=== PATIENT | female | born 1950 | race Caucasian/White ===

== ENCOUNTER → 2016-09-20 | Outpatient (CLI) | payer OTHER ==
--- NOTE | 2016-09-20 10:12 | MM ---
Reason for exam: screening (asymptomatic). Last mammogram was performed 1 year and 1 month ago. History: Family history of breast cancer in sister at age 30. Physical Findings: A clinical breast exam by your physician is recommended on an annual basis and results should be correlated with mammographic findings. MG 3D Screening Mammo W/Cad Bilateral CC and MLO view(s) were taken. Prior study comparison: August 18, 2015, mammogram, performed at [facility]. August 05, 2014, mammogram, performed at [facility]. There are scattered fibroglandular densities. No significant changes when compared with prior studies. ASSESSMENT: Benign, BI-RAD 2 RECOMMENDATION: Routine screening mammogram of both breasts in 1 year.
== END | disposition home or self-care (01) ==
LOC: RADMAMWWP 07:56
PROVIDERS: ATTEND Internal Medicine
DX: Z12.31 Encounter for screening mammogram for malignant neoplasm of breast (principal)
CPT/HCPCS: 77063; G0202

== ENCOUNTER → 2018-09-21 | Outpatient (CLI) | payer MEDICARE, OTHER ==
--- NOTE | 2018-09-24 09:33 | MM ---
Reason for exam: screening (asymptomatic). Last mammogram was performed 2 years ago. History: Family history of breast cancer in sister at age 30. Physical Findings: A clinical breast exam by your physician is recommended on an annual basis and results should be correlated with mammographic findings. MG 3D Screening Mammo W/Cad Bilateral CC and MLO view(s) were taken. Prior study comparison: September 20, 2016, bilateral MG 3d screening mammo w/cad. August 18, 2015, mammogram, performed at [facility]. The breast tissue is heterogeneously dense. This may lower the sensitivity of mammography. No suspicious abnormality. No significant changes when compared with prior studies. ASSESSMENT: Negative, BI-RAD 1 RECOMMENDATION: Routine screening mammogram of both breasts in 1 year.
== END | disposition home or self-care (01) ==
LOC: RADMAMWWP 07:01
PROVIDERS: ATTEND Family Medicine
DX: Z12.31 Encounter for screening mammogram for malignant neoplasm of breast (principal); Z80.3 Family history of malignant neoplasm of breast
CPT/HCPCS: 77063; 77067

== ENCOUNTER → 2023-10-25 | Outpatient (CLI) | payer MEDICARE ==
--- NOTE | 2023-10-26 13:41 | MR ---
EXAMINATION TYPE: MR liver wo/w con DATE OF EXAM: 10/25/2023 7:23 AM CLINICAL INDICATION:Female, 73 years old with history of K76.9 LIVER DISEASE, UNSPECIFIED; PHH, Rt si de abd pain, abnormal CT/US COMPARISON: CT scan abdomen from 10/05/2023 TECHNIQUE: Multiplanar multi-sequence imaging was performed without contrast. Post contrast imaging was performed. Post IV contrast subtraction images were also submitted for review. IV Contrast: 8 cc Gadavist FINDINGS: LOWER CHEST: No gross irregularity. ABDOMEN Liver: No evidence for hepatic steatosis or cirrhosis. Low-density area seen on prior CT is most comp atible with focal fatty infiltration which demonstrates signal dropout on chemical shift phase imagin g. Gallbladder and Bile ducts: No evidence for ductal dilation, or biliary stricture or evidence of chol edocholithiasis. The gallbladder is within normal limits. Pancreas: No ductal dilation. No evidence for solid mass. Spleen: Normal for size. Adrenal glands: Unremarkable. Kidneys: No evidence for obstructive uropathy. No suspicious renal masses. Subcentimeter left renal c yst. Stomach and Bowel: No evidence for bowel wall thickening or evidence for obstruction. Retroperitoneum/Peritoneum: No evidence of pneumoperitoneum or free fluid. Vasculature: No aortic aneurysm. Musculoskeletal: The osseous structures appear intact. Lymph Nodes: No gross evidence for lymphadenopathy. Abdominal wall: Fat-containing umbilical hernia IMPRESSION: Area of concern is focal fatty infiltration near the falciform ligament. No suspicious masses. No abn ormal postcontrast enhancement.
== END | disposition home or self-care (01) ==
LOC: RADMRIMAIN 06:32
PROVIDERS: ATTEND Family Medicine
DX: K76.9 Liver disease, unspecified (principal)
CPT/HCPCS: 74183; A9585

== ENCOUNTER 2023-10-31 10:04 | Emergency (ER) | payer MEDICARE ==
[2023-10-31 10:19] VITALS: RESP 17; TEMP 98
--- NOTE | 2023-10-31 10:30 | ED ---
Lower Extremity Injury HPI - General Chief Complaint: Extremity Injury, Lower Stated Complaint: Fall-R leg injury Time Seen by Provider: 10/31/23 10:21 Source: patient, EMS, RN notes reviewed Mode of arrival: EMS Limitations: no limitations - History of Present Illness Initial Comments: This is a 73-year-old female presents the emergency department with complaint of a fall. Patient states that she was in her garage and she slipped in the water landing in a somwhat split leg position, injuring her right hip and right knee. Patient denies hitting her head or loss of conscious at the time of fall. Currently patient is denying headache, chest pain, dyspnea, palpitations. She denies blood thinner use. Patient's pain is most severe of the right distal femur states that she is unable to complete range of motion of the right knee. Denies previous orthopedic joint replacement surgeries. - Related Data Allergies Allergy/AdvReac Type Severity Reaction Status Date / Time No Known Allergies Allergy Verified 10/31/23 10:19 Review of Systems ROS Statement: Those systems with pertinent positive or pertinent negative responses have been documented in the HPI. ROS Other: All systems not noted in ROS Statement are negative. Past Medical History Past Medical History: Thyroid Disorder History of Any Multi-Drug Resistant Organisms: None Reported Past Surgical History: Hysterectomy, Tubal Ligation Additional Past Surgical History / Comment(s): x 2. Thyroid Smoking Status: Never smoker Past Alcohol Use History: None Reported Past Drug Use History: None Reported General Exam Limitations: no limitations General appearance: alert, in no apparent distress Head exam: Present: atraumatic, normocephalic, normal inspection Eye exam: Present: normal appearance, PERRL, EOMI. Absent: scleral icterus, conjunctival injection, periorbital swelling ENT exam: Present: normal exam, mucous membranes moist Neck exam: Present: normal inspection. Absent: tenderness, meningismus, lymphadenopathy Respiratory exam: Present: normal lung sounds bilaterally. Absent: respiratory distress, wheezes, rales, rhonchi, stridor Cardiovascular Exam: Present: regular rate, normal rhythm, normal heart sounds. Absent: systolic murmur, diastolic murmur, rubs, gallop, clicks GI/Abdominal exam: Present: soft, normal bowel sounds. Absent: distended, tenderness, guarding, rebound, rigid Right Upper Leg exam: Present: tenderness, swelling, deformity (external rotation). Absent: full ROM (unable to complete ROM ), abrasion, laceration, ecchymosis, crepitus Knee exam: Present: tenderness, swelling Lower Leg exam: Present: normal inspection Ankle exam: Present: normal inspection. Absent: full ROM (pain with plantar and dorsiflexion), tenderness, swelling Neurovascular tendon exam: Present: no vascular compromise. Absent: pulse deficit, abnormal cap refill Gait: not tested/not observed Back exam: Present: normal inspection Neurological exam: Present: alert, oriented X3, CN II-XII intact Skin exam: Present: warm, dry, intact, normal color. Absent: rash Course Vital Signs 10/31/23 10/31/23 10:16 13:11 Temperature 98.0 F Pulse Rate 71 62 Respiratory 17 17 Rate Blood Pressure 138/75 108/59 O2 Sat by Pulse 97 96 Oximetry Medical Decision Making - Medical Decision Making Was pt. sent in by a medical professional or institution (, PA, PROTOHISTORIAN, urgent care, hospital, or [facility]...) When possible be specific @ -No Did you speak to anyone other than the patient for history (EMS, parent, family, police, friend...)? What history was obtained from this source @ -No Did you review nursing and triage notes (agree or disagree)? Why? @ -I reviewed and agree with nursing and triage notes Were old charts reviewed (outside hosp., previous admission, EMS record, old EKG, old radiological studies, urgent care reports/EKG's, [facility] records)? Report findings @ -No old charts were reviewed Differential Diagnosis (chest pain, altered mental status, abdominal pain women, abdominal pain men, vaginal bleeding, weakness, fever, dyspnea, syncope, headache, dizziness, GI bleed, back pain, seizure, CVA, palpatations, mental health, musculoskeletal)? @ -Differential Musculoskeletal Muscular strain, contusion, ligament sprain, fracture, arthritis, septic arthritis, bursitis, cellulitis, muscle spasm, nerve compression, DVT, arterial occlusion, herpes zoster, electrolyte abnormality, tumor.... This is not meant to be in all inclusive list EKG interpreted by me (3pts min.). @ -none X-rays interpreted by me (1pt min.). @ -X-ray of the right femur reveals a distal femoral fracture with spiraling into the midshaft. CT interpreted by me (1pt min.). @ -None done U/S interpreted by me (1pt. min.). @ -None done What testing was considered but not performed or refused? (CT, X-rays, U/S, labs)? Why? @ -None What meds were considered but not given or refused? Why? @ -None Did you discuss the management of the patient with other professionals (professionals i.e. DrAliza, PA, PROTOHISTORIAN, lab, RT, psych nurse, social service worker, nursing informatics specialist, teacher, correctional officer chief, supportive employment case manager)? Give summary @ -I spoke to Rody, midlevel orthopedic provider, who spoke to Dr. Beckett in regard to the patient's case, who recommends transfer to [facility] for further evaluation by orthopedic trauma team. Dr. Dillard, [facility], accepts transfer for right femoral fracture Was smoking cessation discussed for >3mins.? @ -No Was critical care preformed (if so, how long)? @ -No Were there social determinants of health that impacted care today? How? (Homelessness, low income, unemployed, alcoholism, drug addiction, transportation, low edu. Level, literacy, decrease access to med. care, prison, rehab)? @ -No Was there de-escalation of care discussed even if they declined (Discuss DNR or withdrawal of care, Hospice)? DNR status @ -No What co-morbidities impacted this encounter? (DM, HTN, Smoking, COPD, CAD, Cancer, CVA, ARF, Chemo, Hep., AIDS, mental health diagnosis, sleep apnea, morbid obesity)? @ -None Was patient admitted / discharged? Hospital course, mention meds given and route, prescriptions, significant lab abnormalities, going to OR and other pertinent info. @ -73 year old female with right leg injury. On examination patient arrived via EMS in a c-collar. On discussion with patient she states that she did not hit her head, lose consciousness, and denies neck pain or pain with neck movement. Complete neurovascular examination within normal limits and no deficits noted of the UE, therefore C-collar was taken off with minimal clinical concern for cervical neck injury. Patient has swelling of the distal right femur and pain with palpation, unable to assess ROM due to pain. Pedal pulses intact with intact capillary refill. Denies pain in the bilateral upper extremities, head, left lower extremity. Patient provided with a dose of morphine and sent for x- ray imaging. Concerning for a fracture of the distal right femur. Orthopedics team recommends transfer to [facility]. Patient accepted for transfer. Emergency department attending, Dr. Dillard, acceptedd transfer. Case discussed with my attending Dr. Brady Undiagnosed new problem with uncertain prognosis? @ -No Drug Therapy requiring intensive monitoring for toxicity (Heparin, Nitro, Insulin, Cardizem)? @ -No Were any procedures done? @ -No Diagnosis/symptom? @ -right femoral fracture Acute, or Chronic, or Acute on Chronic? @ -acute Uncomplicated (without systemic symptoms) or Complicated (systemic symptoms)? @ -complicated Side effects of treatment? @ -No Exacerbation, Progression, or Severe Exacerbation? @ -No Poses a threat to life or bodily function? How? (Chest pain, [place], [place], pneumonia, PE, COPD, DKA, ARF, appy, cholecystitis, CVA, Diverticulitis, Homicidal, Suicidal, threat to staff... and all critical care pts) @ -Yes, untreated severe fractures have the potential to lead to compartment syndrome which is limb threatening if left untreated. Disposition Clinical Impression: Femur fracture, right Disposition: OTHER INSTITUTION NOT DEFINED Condition: Serious Referrals: Kylee Stewart DO [Primary Care Provider] - 1-2 days - Out of Hospital Transfer - Req. Specs Out of Hospital Transfer - Requested Specifics: Other Emergency Center ([facility])
[2023-10-31] MEDS: MORPHINE SULFATE 4 MG/ML SYRINGE IVP STA ×2 (10:36→12:16)
--- NOTE | 2023-10-31 11:30 | XR ---
EXAMINATION TYPE: XR Hip Complete RT, XR femur RT, XR tibia fibula RT DATE OF EXAM: 10/31/2023 11:20 AM INDICATION: Patient age:Female; 73 years old; Reason for study: fall, pain; PHH. COMPARISON: None. TECHNIQUE: The right hip was examined in the frontal and lateral projections . The right femur was ex amined in AP and lateral projections. The right tibia/fibula was examined in AP and lateral projectio ns. FINDINGS: Acute comminuted fracture of the distal to mid right femur identified with oblique and moss sverse components. There is mild to moderate displacement of the fracture fragments. Shortening is id entified measuring up to 5.7 cm. There is lateral apex angulation of the distal fracture aspect. Surr ounding soft tissue edema identified. No fracture or dislocation of the right hip or knee. Mild osteo phytic changes of the right knee with osteophyte formation. No visualized fracture of the tibia or fi bula. No radiopaque foreign body identified. IMPRESSION: Acute comminuted displaced fracture of the mid to distal right femur.
[2023-10-31] MEDS: HYDROmorphone 1 MG/ML 1 ML SYRINGE IVP STA ×3 (11:34→14:07)
[2023-10-31] MEDS: ONDANSETRON 4 MG/2 ML VIAL IVP STA ×2 (12:30→12:31)
[2023-10-31 13:12] VITALS: BP 108/59; PULSE 62
== END 2023-10-31 14:15 | disposition other institution (70) ==
LOC: EC 10:04
DX: S72.491A Other fracture of lower end of right femur, initial encounter for closed fracture (principal); W01.0XXA Fall on same level from slipping, tripping and stumbling without subsequent striking against object, initial encounter; Y92.59 Other trade areas as the place of occurrence of the external cause
CPT/HCPCS: 73502; 73552; 73590; 99285; 96374; 96375 ×2; 96376 ×3; J2270; J2405; J1170

== ENCOUNTER 2024-04-15 07:41 | Day surgery (SDC) | payer MEDICARE ==
[~2024-04-15 07:41] MED LIST: LIDOCAINE 1% (10MG/ML) FOR IV START INTRADERMA PRN; fentaNYL (PF) 50 MCG/ML 2 ML AMP IVP PRN
[2024-04-15] MEDS: IV FLUID CONTINUATION 1,000 ML IV ONE (08:13)
[2024-04-15] MEDS: ACETAMINOPHEN TAB 500 MG TAB PO PRN (08:32)
[2024-04-15] MEDS: LACTATED RINGERS 1,000 ML IV SCH (08:32)
[2024-04-15] MEDS: ONDANSETRON 4 MG/2 ML VIAL IVP ONE (08:32)
[2024-04-15] MEDS: DEXAMETHASONE SOD PHOSPHATE 4 MG/ML 1 ML VIAL IV ONE (08:32)
[2024-04-15] MEDS: MIDAZOLAM 2 MG/2 ML VIAL IV PRN (08:50)
[2024-04-15] MEDS: HEPARIN SODIUM,PORCINE 5,000 UNIT/ML 1 ML VIAL SQ PRN (09:03)
--- NOTE | 2024-04-15 09:48 | P.HPADDEND ---
H&P Addendum H&P Addendum Date: 04/15/24 Patient presents for surgery today. Has both a ventral hernia and an umbilical hernia. Will plan repair of both through a vertical incision between the 2. Patient also complains of a mass in the left subcostal location. Says it has been there for a few years but is sore at times. On exam she has a 1.5 to 2 cm lipoma there. Patient would like this removed. Will add this to the consent.
[2024-04-15] MEDS ORDERED: fentaNYL (PF) 50 MCG/ML 2 ML AMP ONE (09:55)
[2024-04-15] MEDS ORDERED: GLYCOPYRROLATE 0.2 MG/ML 2 ML VIAL ONE (09:55)
[2024-04-15] MEDS ORDERED: MIDAZOLAM 2 MG/2 ML VIAL ONE (09:55)
[2024-04-15] MEDS ORDERED: ROPIVACAINE 5 MG/ML 30 ML VIAL ONE (09:55)
[2024-04-15] MEDS ORDERED: DEXAMETHASONE SOD PHOSPHATE 4 MG/ML 1 ML VIAL ONE (09:55)
[2024-04-15] MEDS ORDERED: PROPOFOL 10 MG/ML 20 ML VIAL IV ONE (09:55)
[2024-04-15] MEDS ORDERED: SUCCINYLCHOLINE CHLORIDE 200 MG/10 ML VIAL IV ONE (09:55)
[2024-04-15] MEDS ORDERED: NEOSTIGMINE 1 MG/ML 10 ML VIAL ONE (09:55)
[2024-04-15] MEDS ORDERED: LIDOCAINE 1% INJ 10MG/ML (20 ML MDV) ONE (09:55)
[2024-04-15] MEDS ORDERED: ROCURONIUM 10 MG/ML (5 ML VIAL) IV ONE (09:55)
[2024-04-15] MEDS ORDERED: PHENYLEPHRINE-0.9% NACL SYG 1,000 MCG/10 ML SYRINGE ONE (09:55)
[2024-04-15] MEDS: BUPIVACAINE (PF) 0.25% 30 ML VIAL SQ ONE (10:24)
[2024-04-15] MEDS: LACTATED RINGERS 1,000 ML IV ONE (11:00)
--- NOTE | 2024-04-15 11:22 | P.OP ---
Date of Procedure: 04/15/24 Procedure(s) Performed: PREOPERATIVE DIAGNOSIS: Incarcerated ventral hernia, reducible umbilical hernia, abdominal wall lipoma POSTOPERATIVE DIAGNOSIS: Same PROCEDURE: Open repair incarcerated ventral and reducible umbilical hernia with mesh, excision abdominal wall lipoma with intermediate closure SURGEON: Dr. Caceres ANESTHESIA: General EBL: 20 cc OPERATIVE PROCEDURE DETAILS: Patient placed on the operating table in the supine position. Abdomen was prepped and draped in usual sterile fashion. First the lipoma was addressed. This was present in the left quadrant. A horizontal incision was made overlying the palpable mass. This measured 2.2 cm in size. This was sent to pathology for close examination. Subcutaneous layers were closed using 3-0 Vicryl sutures. Skin was closed using a running 4-0 Monocryl stitch. Length of intermediate closure 2 cm. A vertical incision was then made superior to the umbilicus by approximately 3 cm. Dissection through the subcutaneous tissues took place using electrocautery. The patient had an incarcerated ventral hernia. This was coming through a small defect measuring only about 7 mm in size. This hernia sac was excised. Small area of bleeding was controlled using a 3-0 silk tie. Fascia was closed here using 3 separate [id number] 0 Ethibond sutures. The patient's reducible umbilical hernia was larger. The fascial defect here was 2.3 cm. The hernia sac was circumferentially dissected and reduced back into the preperitoneal space. P reperitoneal space was then carefully dissected using both blunt dissection and cautery. We had adequate space now for a sizable mesh. The 6.4 cm ventral ex mesh was placed in the preperitoneal space and sutured to the fascia using trans-fascial 0 Ethibond sutures. Following that the midline fascia was reapproximated using interrupted 0 Ethibond mattress sutures. The subcutaneous tissues were closed using 3-0 Vicryl sutures. The skin was closed using a running 4-0 Monocryl suture. Skin glue and sterile dressings were applied. TYPE OF MESH USED: 6.4 cm Ventralex LOCATION OF MESH: Sublay FIXATION: 0 Ethibond PREOPERATIVE DISCUSSION ON SMOKING CESSASTION: Yes PREOPERATIVE DISCUSSION ON MORBID OBESITY: Yes PREOPERATIVE DISCUSSION ON APPROPRIATE USE OF NARCOTIC USE: Yes PREOPERATIVE EDUCATION: Multi Modal, Smoking Cessation and Weight Loss with BMI over 35. DISPOSITION: Stable to recovery room
[2024-04-15 11:34] VITALS: TEMP 97
[2024-04-15] MEDS: HYDROmorphone 0.5 MG/0.5 ML SYRINGE IVP PRN (11:57)
[2024-04-15] MEDS ORDERED: ACETAMINOPHEN TAB 325 MG TAB PO SCH (12:00)
[2024-04-15] MEDS: KETOROLAC 15 MG/ML 1 ML VIAL IVP STA (12:29)
[2024-04-15 13:47] VITALS: BP 125/71; PULSE 68; RESP 18
--- NOTE | 2024-04-15 14:02 | P.ANPRN ---
Procedure Note - Anesthesia - Nerve Block Performed Bilateral Transversus Abdominis Single Time Out Performed: Yes Date of Procedure: 04/15/24 Procedure Start Time: 08:48 Procedure Stop Time: 08:56 Location of Patient: PreOp Indication: Acute Post-Operative Pain, Requested by Surgeon Sedation Type: Sedate with meaningful contact maintained Preparation: Sterile Prep Position: Supine Needle Types: Pajunk Needle Gauge: 21 Ultrasound used to visualize needle placement: Yes Ultrasound used to observe medication spread: Yes Blood Aspirated: No Pain Paresthesia on Injection Noted: No Resistance on Injection: Normal Image Stored and Saved: Yes Events: Uneventful and Well Tolerated (Ropivacaine 0.5% 20 cc plus dexamethasone 4 mg given bilaterally)
[2024-04-15] MEDS ORDERED: IBUPROFEN 600 MG TAB PO SCH (15:00)
== END 2024-04-15 14:13 | disposition home or self-care (01) ==
LOC: OR 07:41
PROVIDERS: ATTEND Surgery
DX: K43.6 Other and unspecified ventral hernia with obstruction, without gangrene (principal); K42.9 Umbilical hernia without obstruction or gangrene; D17.1 Benign lipomatous neoplasm of skin and subcutaneous tissue of trunk; E07.9 Disorder of thyroid, unspecified; M19.90 Unspecified osteoarthritis, unspecified site; Z79.890 Hormone replacement therapy; Z79.899 Other long term (current) drug therapy; Z89.9 Acquired absence of limb, unspecified
CPT/HCPCS: 64488; 49592; 22903; C1781; J2250; J0330; J1644; J1100; J2710; J0690; J2405; J2003; J3010; J2795; J1885; J2704; J1171; J2371; J0665; J1596; 88304

== ENCOUNTER → 2024-10-28 | Outpatient (CLI) | payer MEDICARE ==
--- NOTE | 2024-10-28 07:43 | MM ---
Reason for Exam: Screening (asymptomatic). Last mammogram was performed 6 year(s) and 1 month(s) ago. Patient History: Menarche at age 16. First Full-Term at age 27. Hysterectomy at age 29. Sister had breast cancer, age 30. Risk Values: Jaimie 5 year model risk: 3.1%. NCI Lifetime model risk: 8.1%. Prior Study Comparison: 08/18/2015 Screening Mammogram, [facility] . 09/20/2016 Bilateral Screening Mammogram, [facility]. 09/21/2018 Bilateral Screening Mammogram, [facility]. Tissue Density: The breasts are heterogeneously dense, which may obscure small masses. Findings: Analyzed By CAD. There is no suspicious group of microcalcifications or new suspicious mass in either breast. Overall Assessment: Negative, BI-RAD 1 Management: Screening Mammogram of both breasts in 1 year. . Patient should continue monthly self-breast exams. A clinical breast exam by your physician is recommended on an annual basis. This exam should not preclude additional follow-up of suspicious palpable abnormalities. Note on Jaimie scores and lifetime risk: 1. A Jaimie score greater than 3% is considered moderate risk. If this is the case, consider specialist referral to assess eligibility for a risk reducing agent. 2. If overall lifetime risk for the development of breast cancer is 20% or higher, the patient may qualify for future screening with alternating mammogram and breast MRI. [facility], , 10/28/2024 7:41 AM. Electronically signed and approved by: Fermín Campo M.D. Radiologis
== END | disposition home or self-care (01) ==
LOC: RADMAMWWP 07:27
PROVIDERS: ATTEND Family Medicine
DX: Z12.31 Encounter for screening mammogram for malignant neoplasm of breast (principal); R92.333 Mammographic heterogeneous density, bilateral breasts; Z80.3 Family history of malignant neoplasm of breast
CPT/HCPCS: 77063; 77067